=== PATIENT | female | born 1935 | race Caucasian/White ===

== ENCOUNTER 2018-10-30 15:07 | Emergency (ER) | payer MEDICARE, OTHER, SELFPAY ==
[2018-10-30 16:00] VITALS: BP 148/56; PULSE 74; RESP 16; TEMP 36.4; O2SAT 96
--- NOTE | 2018-10-30 16:34 | DI.RAD_ITS ---
SYMPTOMS/DIAGNOSIS: COUGH CHEST X-RAY, PA AND LATERAL: No priors. The heart is normal in size. The lungs are clear. The mediastinal structures and pleura appear intact. IMPRESSION: Normal chest.
--- NOTE | 2018-10-30 16:35 | W.ED.GENAD ---
Discharge Plan Disposition Patient Disposition: HOME Condition: Stable Discharge Details Chief Complaint: GenMedical Clinical Impression: Anxiety, Diuretic-induced hypokalemia Reason For Visit: cough /congestion Primary Care Provider: None,None ED Provider: Catalino Saba Home Meds and New Rx's Prescriptions: New lorazepam [Ativan] 0.5 mg tablet 0.5 mg PO QHS PRN (Reason: anxiety/agitation) Qty: 2 RF: 0 Discharge Instructions Instructions: Hypokalemia (ED), Anxiety (ED) Additional Instructions: Our care management team will work to get you an appointment to establish care in the community. Continue regular medications. As we discussed her potassium was slightly low at 3.2 and you would benefit from increased dietary potassium with bananas, strawberries, tree nuts. Medical Decision Making 82-year-old female presents from home complaining of generalized cough and mild illness over days time. Also relates that she recently moved to this area and is not been able to seek primary care as of yet and also ran out of Ativan which she uses intermittently for agitation. She is afebrile and well-appearing. Exam is reassuring. She has a number of medical comorbidities including diabetes. Screening laboratories and chest x-ray of the chest obtained. She has a BUN of 18 with a creatinine 1.3. Slightly low potassium of 3.2. She does take lasix and likely secondary to diuresis. Labs otherwise with mild hyperglycemia. CXR without focal infiltrate. We will arrange the patient to establish care in the community since 1 of her primary complaints. He also complain of significant agitation intermittently for which she has used Ativan in the past. While we will not prescribe this insignificant quantity will offer 2 tablets for home. Discussed with the patient and her family the objective findings today. She is stable for outpatient management at this time. . Medical Records Medical records reviewed: Yes I reviewed the patient's medical records. Laboratory Results - last 24 hr 10/30/18 10/30/18 16:47 16:47 WBC 8.43 RBC 4.57 Hgb 13.8 Hct 42.0 MCV 91.9 MCH 30.2 MCHC 32.9 RDW 14.0 Plt Count 171 MPV 12.8 H Immature Gran % 0.2 Neutrophils % 68.9 Lymphocytes % 20.8 Monocytes % 9.0 Eosinophils % 0.7 Basophils % 0.4 Absolute Neutrophils 5.81 Absolute Lymphocytes 1.75 Absolute Monocytes 0.76 H Absolute Eosinophils 0.06 Absolute Basophils 0.03 Sodium 138 Potassium 3.2 L Chloride 100 Carbon Dioxide 29.9 Anion Gap 8.1 BUN 18 Creatinine 1.30 H Estimated GFR/1.73 m2 39.21 Glucose 325 H Calcium 8.7 Total Bilirubin 1.0 AST 13 L ALT 11 L Alkaline Phosphatase 95 Total Protein 7.4 Albumin 3.4 HPI General Mode of arrival: ambulatory. Date/Time Provider Initiated Documentation: 10/30/18 16:24. Limitations to Documentation: no limitations. Information obtained by: patient and family. History of Present Illness 82 year old F presents to the emergency department with the chief complaint of Cough, congestion, question intermittent anxiety, described as mild, Quality is described as dull, and is localized to the chest. Patient reports no radiation. Patient started experiencing this hour(s) No relieving factors improve symptom(s), Patient notes no other symptoms.. Related Data Home Medications Medication Instructions Recorded Confirmed lorazepam [Ativan] 0.5 mg PO QHS PRN #2 tab 10/30/18 Previous Rx's Medication Instructions Recorded lorazepam [Ativan] 0.5 mg PO QHS PRN #2 tab 10/30/18 General Stated Complaint: GenMedical ROSA: 3 Review of Systems Review of Systems 04/29 reviewed and otherwise neg [facility] Social History Smoking and Tabacco status: Former Tobacco Use Exam Narrative Exam Narrative: GEN: awake, alert, oriented 3. Pleasant, well groomed, interactive. HEAD: Normocephalic, atraumatic ENT: Mucous membranes moist, oropharynx unremarkable, External ear exam unremarkable EYES: PERRL, EOMI NECK: Full ROM, no MARIAM, no menigismus CHEST/RESP: Nontender, clear to auscultation bilateral, no wheeze/rhonchi/rales CARDIOVASCULAR: RRR, no murmur, rub krista. 2+ Rad pulse bilateral ABDOMEN: Soft, nontender, no mass. +Bowel sounds EXT: Full ROM, no edema, no rash Neuro: Grossly normal neurologic exam, conversant, interactive. Psych: Speech fluent, thoughts congruent, affect normal Course Vital Signs Temperature 36.4 C L 10/30/18 16:00 Pulse 74 10/30/18 16:00 Respiratory Rate 16 10/30/18 16:00 Blood Pressure 148/56 H 10/30/18 16:00 Pulse Oximetry 96 10/30/18 16:00 Temperature 36.4 C L 10/30/18 16:00 Temperature Source Temporal Artery Scan 10/30/18 16:00 Pulse 74 10/30/18 16:00 Respiratory Rate 16 10/30/18 16:00 Blood Pressure 148/56 H 10/30/18 16:00 Blood Pressure Position Sitting 10/30/18 16:00 Pulse Oximetry 96 10/30/18 16:00 Oxygen Delivery Method Room Air 10/30/18 16:00 Oxygen Flow Rate 0 10/30/18 16:00 Pain Level 0 10/30/18 16:00
[2018-10-30 16:54] LABS: Abs Immature Grans 0.02 k/cumm (0.0-0.09); Absolute Basophil Count 0.03 k/cumm (0.0-0.2); Absolute Eosinophil Count 0.06 k/cumm (0.0-0.7); Absolute Lymphocyte Count 1.75 k/cumm (1.2-3.4); Absolute Monocyte Count 0.76 k/cumm (0.11-0.7); Absolute Neutrophil Count 5.81 k/cumm (1.2-6.7); Basophils % 0.4; Eosinophils % 0.7; HGB 13.8 g/dL (12.0-15.5); Immature Grans % 0.2; Lymphocytes % 20.8; Mean Corp. HGB Concentration 32.9 g/dL (32.0-36.0); Mean Corpuscular Hemoglobin 30.2 pg (27.0-33.0); Mean Corpuscular Volume 91.9 fL (80-95); Mean Platelet Volume 12.8 fL (8.0-11.0); Neutrophils % 68.9; Platelet Count 171 x1000/uL (130-400); RBC 4.57 m/cumm (4.00-5.20); White Blood Cell Count 8.43 k/cumm (4.4-10.8)
[2018-10-30 17:07] LABS: ALT 11 U/L (12-78); AST 13 U/L (15-37); Albumin 3.4 g/dL (3.4-5.0); Alkaline Phosphatase 95 U/L (46-116); Anion Gap 8.1 mmol/L (3-11); BUN 18 mg/dL (7-18); CO2 29.9 mmol/L (21.0-32.0); Calcium 8.7 mg/dL (8.5-10.1); Chloride 100 mmol/L (98-107); Estimated GFR 39.21 (mL/min/1.73m2); Glucose 325 mg/dL (70-100); Potassium 3.2 mmol/L (3.5-5.1); Sodium 138 mmol/L (136-145); Total Protein 7.4 g/dL (6.4-8.2)
--- NOTE | 2018-10-30 18:40 | DI.VRAD_ITS ---
EXAM: XR Chest, 2 Views EXAM DATE/TIME: 10/30/2018 4:35 PM CLINICAL HISTORY: 82 years old, female; Signs and symptoms; Other: Cough TECHNIQUE: XR of the chest, 2 views. COMPARISON: No relevant prior studies available. FINDINGS: Lungs: Unremarkable. No consolidation. Pleural space: Unremarkable. No pleural effusion. No pneumothorax. Heart/Mediastinum: Unremarkable. No cardiomegaly. Bones/joints: No acute bony abnormality. Mild degenerative changes of the thoracic spine with anterior osteophytes. IMPRESSION: Negative chest exam. Dictated and Authenticated by: Korina Pradhan MD. Ordering:PAULINE Bae MD
[2018-10-30 19:00] VITALS: BP 148/56; PULSE 74; RESP 16; RESP 20; TEMP 36.4; O2SAT 96
--- NOTE | 2018-10-31 08:55 | PDOC.ERCMPRO ---
Care Management Progress Note 10/31-Dr. 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 Referral faxed to [employer] [facility] this am.
--- NOTE | 2018-10-31 08:57 | CMPROGNOTE_ITS ---
Care Management Progress Note 10/31-Dr. 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 Referral faxed to [employer] [facility] this am.
== END 2018-10-30 19:00 | disposition home or self-care (01) ==
PROVIDERS: Emergency Provider Emergency Medicine
DX: F41.9 Anxiety disorder, unspecified (principal); E87.6 Hypokalemia; T50.2X5A Adverse effect of carbonic-anhydrase inhibitors, benzothiadiazides and other diuretics, initial encounter; R05 Cough; E11.65 Type 2 diabetes mellitus with hyperglycemia; I10 Essential (primary) hypertension
CPT/HCPCS: 36415; 80053; 99284; 71046; 85025

== ENCOUNTER 2018-11-02 19:39 | Outpatient (REF) | payer MEDICARE, OTHER, SELFPAY ==
[2018-11-02 20:04] LABS: Bilirubin Negative (Negative); Blood Negative (Negative); Clarity Clear; Glucose 500 mg/dL (Negative); Ketones Negative (Negative); Leukocyte Esterase Negative (Negative); Nitrite Negative (Negative); Specific Gravity 1.015 (1.005-1.025); Urobilinogen 0.2 EU/dL (Up TO 0.2)
[2018-11-02 20:19] LABS: Abs Immature Grans 0.01 k/cumm (0.0-0.09); Absolute Basophil Count 0.02 k/cumm (0.0-0.2); Absolute Eosinophil Count 0.11 k/cumm (0.0-0.7); Absolute Lymphocyte Count 1.63 k/cumm (1.2-3.4); Absolute Monocyte Count 0.62 k/cumm (0.11-0.7); Absolute Neutrophil Count 4.68 k/cumm (1.2-6.7); Basophils % 0.3; Eosinophils % 1.6; HCT 42.7 % (36.0-46.0); HGB 13.9 g/dL (12.0-15.5); Immature Grans % 0.1; Lymphocytes % 23.1; Mean Corp. HGB Concentration 32.6 g/dL (32.0-36.0); Mean Corpuscular Volume 92.2 fL (80-95); Mean Platelet Volume 13.5 fL (8.0-11.0); Monocytes % 8.8; Neutrophils % 66.1; Platelet Count 183 x1000/uL (130-400); RBC 4.63 m/cumm (4.00-5.20); RBC Distribution Width 13.9 % (11.7-14.6); White Blood Cell Count 7.07 k/cumm (4.4-10.8)
[2018-11-02 20:23] LABS: Bacteria Few HPF (Negative); C & S Indicated? No; Casts Negative LPF (Negative); Crystals Negative HPF (Negative); Epithelial Cells Few HPF (Negative); Mucus Trace (Negative); Other Cells Negative (Negative); RBC Negative (0-2); WBC Negative HPF (0-5)
[2018-11-02 20:37] LABS: ALT 15 U/L (12-78); AST 16 U/L (15-37); Albumin 3.3 g/dL (3.4-5.0); Alkaline Phosphatase 103 U/L (46-116); Anion Gap 9.9 mmol/L (3-11); BUN 17 mg/dL (7-18); Bilirubin, Total 0.6 mg/dL (0.2-1.0); CO2 30.1 mmol/L (21.0-32.0); CREATININE 1.05 mg/dL (0.55-1.02); Calcium 8.7 mg/dL (8.5-10.1); Chloride 98 mmol/L (98-107); Estimated GFR 50.18 (mL/min/1.73m2); Glucose 304 mg/dL (70-100); Potassium 3.4 mmol/L (3.5-5.1); Sodium 138 mmol/L (136-145)
[2018-11-02 21:37] LABS: Hemoglobin A1C 8.6 % (4.5-6.2)
== END 2018-11-02 19:59 ==
LOC: NCHCN 19:39
PROVIDERS: Visit Provider Nurse Practitioner Family
DX: E11.9 Type 2 diabetes mellitus without complications (principal); E87.6 Hypokalemia
CPT/HCPCS: 80053; 81003; 81015; 83036; 85025

== ENCOUNTER 2019-01-17 10:04 | Inpatient (IN) | payer OTHER, SELFPAY ==
[2019-01-17] MEDS: Scopolamine 1 MG/3 DAYS PATCH TD (11:55)
--- NOTE | 2019-01-17 12:40 | W.PM.DDS ---
Date of service: 01/17/19 Time of Service: 12:40 Discharge Sum: Prov Provider Consults: 01/17/19 10:01 Super[employer] Consult [CONS] Routine Consultation Status:: Follow-up needed Clarification:: Manage/follow per spec. Reason for consult:: [place] get [place]
--- NOTE | 2019-01-17 12:45 | EXPE_ITS ---
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 Reason for consult:: [place] get [place] [facility] lately
--- NOTE | 2019-01-17 14:20 | NUR.NOTE ---
Nursing Note: Scopolamine patch removed prior to home taking body.
== END 2019-01-17 12:27 | disposition expired | DRG 189 ==
PROVIDERS: Admitting Provider Family Medicine; Visit Provider Family Medicine
DX: J96.90 Respiratory failure, unspecified, unspecified whether with hypoxia or hypercapnia (principal); Z51.5 Encounter for palliative care
CPT/HCPCS: 99239